=== PATIENT | male | born 1990 | race Asian ===

== ENCOUNTER 2023-05-09 12:12 | Emergency (ER) | payer OTHER ==
[~2023-05-09] VITALS: Ht 172.7 cm; Wt 76.7 kg
[2023-05-09 12:20] VITALS: TEMP 98.4
[2023-05-09 13:07] VITALS: BP 118/68
== END 2023-05-09 13:07 | disposition home or self-care (01) ==
LOC: ED 12:12
DX: L25.9 Unspecified contact dermatitis, unspecified cause (principal); B34.9 Viral infection, unspecified; R21 Rash and other nonspecific skin eruption
CPT/HCPCS: 96372; 99283; J1100